=== PATIENT | female | born 1975 | race Caucasian/White ===

== ENCOUNTER 2024-10-02 19:42 | Emergency (ER) | payer OTHER ==
[2024-10-02 22:18] VITALS: BP 152/98; PULSE 80; RESP 20; O2SAT 98
[2024-10-02] MEDS ORDERED: MOTRIN 600 MG ONE (22:43)
[2024-10-02] MEDS ORDERED: NORCO 5/325 MG ONE (22:43)
[2024-10-02] MEDS: MOTRIN 600 MG PO ONE (22:44)
[2024-10-02] MEDS: NORCO 5/325 MG PO ONE ×2 (22:45→22:47)
--- NOTE | 2024-10-02 22:45 | ERPHSYRPT ---
- History of Present Illness Source: patient Exam Limitations: no limitations Patient Subjective Stated Complaint: Pt awake this am with right shoulder pain. Pain so bad she was not able to move her arm without severe pain or let her arm dangle. Pt keeps arm elevated up on her chest and still to gain the most comfort. Pt States that the pain in her shoulder radiates down her arm and into her hand at times. Triage Nursing Assessment: right shoulder pain, noted grimicing with movemant or attempted use of arm, pt denies any activity the day before of lifting pulling or pushing. No bruising noted, skin warm and pink. Denies any numbness or tingling in the extrimity Physician History: Patient woke up this morning with shoulder pain is in her right shoulder. Its pretty much in the posterior shoulder count around the deltoid area it radiates down towards her elbow. Whenever she moves too far she gets a shooting pain down her forearm and into her 3rd and 4th finger. She does not have any neck pain or pain when she moves her neck. She does not have any numbness or tingling or paresthesias. The pain does follow a neural distribution however it does not seem to stem from the neck. I wonder if it might come from somewhere distal to the spine. There was no trauma. She woke up from sleeping moved around a little bit and then the pain occurred.She has to hold her shoulder somewhat still internally rotated and adducted. That seems to help the pain.Movement of the arm makes it worse.It certainly seems to have a nerve distribution pattern Allergies/Adverse Reactions: morphine Adverse Reaction (Severe, Verified 10/02/24 22:31) "MAKES HER CRAZY" Home Medications: Esomeprazole Magnesium [Nexium] 40 mg PO DAILY 02/27/13 [History] Hx Tetanus, Diphtheria Vaccination/Date Given: Yes Hx Influenza Vaccination/Date Given: No Hx Pneumococcal Vaccination/Date Given: No Immunizations Up to Date: No Travel Risk - International Travel Have you traveled outside of the country in past 3 weeks: No - Emerging Infectious Disease Are you exhibiting symptoms associated with any current EIDs: No - Review of Systems Constitutional: No Symptoms Eyes: No Symptoms Skin: No Symptoms All Other Systems: Reviewed and Negative - Past Medical History Pertinent Past Medical History: Yes Neurological History: Migraines ENT History: No Pertinent History Cardiac History: Hypertension Respiratory History: Sleep Apnea Endocrine Medical History: Diabetes Type II Musculoskeletal History: Other GI Medical History: GERD, Hemorrhoids, Other History: No Pertinent History Psycho-Social History: No Pertinent History Female Reproductive Disorders: Other Other Medical History: recent colonoscopy- polyps found, Partial hysterectomy, ovary removed due to cyst, thinks it was her left one, 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 - Past Surgical History Past Surgical History: Yes Cardiac: No Pertinent History Gastrointestinal: Cholecystectomy Genitourinary: Other Female Surgical History: Hysterectomy Other Surgical History: PARTIAL HYSTERECTOMY, ovary removed due to cyst - Female History Hx Last Menstrual Period: NA Hx Now: No - Social History Smoking Status: Current some day smoker How long have you smoked: 3 yrs Drug Use: none - Social Determinants of Health Do you worry about a steady place to live?: No Do you have any problems with any of the following?: No known problems In the past 12 months,have you had to go without utilities?: No Transportation Issues: No Has anyone in your support network made you feel unsafe?: No Have you or anyone in your house had to go w/o enough food: No - Nursing Vital Signs Nursing Vital Signs: Initial Vital Signs Pulse Rate 80 10/02/24 22:17 Respiratory Rate 20 10/02/24 22:17 Blood Pressure 152/98 10/02/24 22:17 O2 Sat by Pulse Oximetry 98 10/02/24 22:17 Pain Scale Pain Intensity 10 - Physical Exam General Appearance: no apparent distress Eyes, Ears, Nose, Throat Exam: normal ENT inspection Shoulder Exam: no evidence of injury, limited ROM (Limited range of motion due to pain. Whenever she moves her shoulder she has pain down the arm), soft tissue tenderness, No bone tenderness, No deformity Elbow/Forearm Exam: normal inspection, non-tender, no evidence of injury, normal ROM Wrist Exam: normal inspection, non-tender, no evidence of injury Hand Exam: normal inspection SpO2: 98 Comments: Patient had neuro neurological deficits in the upper extremity. - Course EKG Interpreted by Me: RATE Rhythm Strip: Rate Ordered Tests: Medication Summary Generic Name Dose Route Start Last Admin Trade Name Freq PRN Reason Stop Dose Admin Hydrocodone Bitart/Acetaminophen 1 tab 10/02/24 22:39 Hydrocodone/Apap 5/325 1 Tab Tablet PO 10/02/24 22:40 STAT ONE Ibuprofen 600 mg 10/02/24 22:39 Ibuprofen 600 Mg Tablet PO 10/02/24 22:40 STAT ONE - Progress Progress: unchanged Progress Note: Patient stable throughout stay. I think it is either neurological type pain secondary to nerve compression or could possibly be muscle issue. The most likely in my mind is the nerve. I am going to have the patient rest it we will put her in a sling I will give her [place] and ibuprofen.She is to ice the area and will return if symptoms worsen. 10/02/24 22:44 - Departure Departure Disposition: Home Clinical Impression: Shoulder pain, acute Condition: Stable Critical Care Time: No Instructions: Neuropathic pain
== END 2024-10-02 22:50 | disposition home or self-care (01) ==
LOC: ED 19:42
DX: M25.511 Pain in right shoulder (principal); I10 Essential (primary) hypertension; E11.9 Type 2 diabetes mellitus without complications; Z79.899 Other long term (current) drug therapy; Z72.0 Tobacco use
CPT/HCPCS: 99283; A9270-GY